=== PATIENT | female | born 1985 | race Caucasian/White ===

== ENCOUNTER 2019-06-13 14:03 | Emergency (ER) | payer MEDICAID, SELFPAY ==
[2019-06-13 14:04] VITALS: BP 145/90; PULSE 99; RESP 16; TEMP 37.1; O2SAT 97; BMI 31.8
[2019-06-13 15:01] VITALS: RESP 18
--- NOTE | 2019-06-13 15:08 | RAD_ITS ---
STUDY: X-RAY CHEST REASON FOR EXAM: Female, 33 years old. Cough with chest heaviness. TECHNIQUE: Frontal and lateral views of the chest. COMPARISON: None. FINDINGS: The lungs are clear and expanded. There is no demonstrated pleural abnormality. Normal size heart. Normal mediastinum and bautista. Normal visualized pulmonary arteries. Normal visualized aortic arch and descending thoracic aorta. Normal visualized thoracic spine. Normal visualized ribs, clavicles, and shoulders. There is no demonstrated abnormality of the visualized soft tissue structures of the upper abdomen. RAD/Chest PA and Lateral IMPRESSION: Normal x-ray examination of the chest. Electronically Signed: Tito Goodman MD at 15:31 EST , Service support ,
--- NOTE | 2019-06-13 15:09 | ED.VIS.URI ---
History of Present Illness Chief Complaint: Cold Sx Informant: Patient Onset: Days - 4 Context: Gradual Onset Timing: Continuous Quality: throbbing headache. chest pressure/tightness. Location: bifrontal. substernal. Current Severity: Moderate Maximum Severity: Moderate Worsened by: - - nothing Relieved by: - - nothing Associated Symptoms: Nasal Congestion, Headache, Nonproductive cough. Negative for: Nausea, Shortness of Breath, Hemoptysis Narrative: Patient states she has had a migraine for 4 or 5 days, followed by cold symptoms and the migraine has persisted and worsened. It was gradual onset headache, no thunderclap, no loss of consciousness or vomiting associated with it. She denies any fevers or dyspnea but states her chest hurts especially when she coughs. She is having some tightness. No history of asthma. States she has had headaches like this before but not very frequently. - Past Medical History (1) Endometriosis Status: Chronic Past Medical History - Allergies and Home Meds Allergies/Adverse Reactions: Allergies Penicillins Allergy (Verified 06/13/19 14:03) Angioedema venlafaxine [From Effexor] Allergy (Verified 06/13/19 14:03) Hives Primary Care Physician: NOT,DEFINED [NON-STAFF] - Lives: With Family Smoking Status: Never smoker Drugs: None Review of Systems General: Reports: Malaise. Denies: Chills, Fever, Sweats Eyes: Reports: Blurred Vision - bilaterally - when headache worsens. Denies: Diplopia ENT: Reports: Bilateral ear pain, Rhinorrhea, Sore throat Cardiovascular: Reports: Chest pain. Denies: Palpitations Respiratory: Reports: Cough. Denies: Dyspnea, Sputum, Dyspnea on exertion Gastrointestinal: Reports: Vomiting - rare posttussive only. Denies: Abdominal pain, Nausea, Diarrhea, Melena, Hematochezia Genitourinary: Denies: Dysuria, Hematuria, Frequency Musculoskeletal: Denies: Neck pain, Back pain, Swelling, Extremity Pain Skin: Denies: Rash, Wounds Neurological: Reports: Headache - migraine. Denies: Weakness, Numbness Physical Exam Vital Signs/Narrative: Vital Signs Temp Pulse Resp BP Pulse Ox 06/13/19 15:01 18 06/13/19 14:04 98.7 F 99 16 145/90 H 97 Inital Vital Signs reviewed: Yes General: Well nourished, Well developed, Obese Head: Normocephalic, Atraumatic Eyes: Perrl, EOMI Ears: Normal external canal, - - cerumen impaction bilaterally; TMs not visible at all. Negative for: Pain with Movement of Right Tragus, Pain with Movement of Left Tragus, Right Mastoid Tenderness, Left Mastoid Tenderness Nose: Normal Inspection, No Rhinorrhea Mouth/Throat: Normal Inspection, No Posterior Erythema, Airway Patent Tonsils: Negative for: Right Tonsilar Erythema, Left Tonsilar Erythema, Right Tonsilar Exudates, Left Tonsilar Exudates, Right Tonsilar Swelling, Left Tonsilar Swelling Neck: Supple, Nontender, No Lymphadenopathy, No Meningismus Cardiovascular: Regular rate, Regular rhythm, No murmurs Respiratory: No distress, CTA bilaterally, Chest nontender Abdomen: Soft, Nontender, Nondistended, Normal bowel sounds Back: Nontender, Normal Inspection Extremities: Nontender, No edema. Negative for: Calf Tenderness Skin: Normal color, No rash, No Trauma Neurological: Alert, Oriented x3, Cranial nerves II-XII grossly intact, Normal Strength, Normal Sensation Psychological: Normal affect, Normal Mood Diagnostic/Tx/Re-eval Clinical Impression(s) from Imaging Studies Chest X-Ray 06/13/19 15:08 IMPRESSION: Normal x-ray examination of the chest. Electronically Signed: Tito Goodman MD at 15:31 EST , Service support , - Medical Decision Making Chest x-ray unremarkable. Albuterol aerosol did not help her chest discomfort but a GI cocktail did. He had nursing staff irrigate the cerumen out of her ears. This helped significantly on the right, her TM on reexamination is normal-appearing. On the left there is still quite a bit of hard cerumen, I can see a very slight piece of the superior aspect of the tympanic membrane that looks erythematous. She states this ear hurts worse. Will place her on antibiotics for the ear, she was advised that it will likely not help her cold. She was given appropriate discharge instructions for all of the above. ED Disposition - Plan for ED Patient: Disposition: Home or Assisted Living Diagnosis: Left otitis media, Acute viral bronchitis, Impacted cerumen of both ears Instructions: BRONCHITIS, No Antibiotic (Adult), OTITIS MEDIA, Abx Tx (Adult), CERUMEN IMPACTION, Home Care Prescriptions: Azithromycin [Zithromax Z-Davonte] 250 mg PO UD #1 box Prescription Printed Referrals: Doctor,Your [STAFF PHYSICIAN] - 1 Week if not improving
[2019-06-13] MEDS: Ketorolac 60 MG/2 ML Vial IM (15:31)
[2019-06-13] MEDS: Metoclopramide 10 MG/2 ML Vial IM (15:31)
[2019-06-13] MEDS: Albuterol 2.5 MG/3 ML VIAL.NEB. INHALATION (15:36)
[2019-06-13 15:37] VITALS: PULSE 84; RESP 20
[2019-06-13] MEDS: Mag Hydrox/Al Hydrox/Simeth 30 ML UDC PO (16:39)
== END 2019-06-13 17:02 | disposition home or self-care (01) ==
PROVIDERS: Emergency Provider Emergency Medicine
DX: H66.92 Otitis media, unspecified, left ear (principal); J20.8 Acute bronchitis due to other specified organisms; H61.23 Impacted cerumen, bilateral; G43.909 Migraine, unspecified, not intractable, without status migrainosus; E66.9 Obesity, unspecified; N80.9 Endometriosis, unspecified
CPT/HCPCS: 71046; 94640; 96372; 99284

== ENCOUNTER 2020-03-10 01:27 | Outpatient (CLI) | payer MEDICAID, SELFPAY ==
[2020-03-10 01:27] VITALS: BP 154/88; PULSE 78; PULSE 82; RESP 20; TEMP 36.3; O2SAT 100; O2SAT 99; BMI 42.3
--- NOTE | 2020-03-10 01:35 | EKG12_ITS ---
Test Reason : CP Blood Pressure : / mmHG Vent. Rate : 088 BPM Atrial Rate : 088 BPM P-R Int : 154 ms QRS Dur : 088 ms QT Int : 352 ms P-R-T Axes : 044 056 061 degrees QTc Int : 425 ms Normal sinus rhythm with sinus arrhythmia Normal ECG No previous ECGs available Confirmed by ANGELO ROGER, EL ([id number]), make up editor ARGENTINA LLANES ([id number]) on 03/17/2020 12:51:28 PM Referred By: MR Confirmed By:EL STEPHENS MD
--- NOTE | 2020-03-10 01:36 | RAD_ITS ---
STUDY: X-RAY CHEST REASON FOR EXAM: Female, 34 years old. C/O HEAVINESS IN CHEST X 1 DAY -- WOULD NOT TAKE IN A DEEPER INSPIRATION DUE TO PAIN TECHNIQUE: PA and lateral views of the chest. COMPARISON: June 13, 2019 chest x-ray FINDINGS: Lungs are underexpanded. There is increased density in the lower lung zones allowing for summation of shadows. There is no demonstrated pleural abnormality. Normal size heart. Normal mediastinum and bautista. Normal visualized pulmonary arteries. Normal visualized aortic arch and descending thoracic aorta. Normal visualized thoracic spine. Normal visualized ribs, clavicles, and shoulders. There is no demonstrated abnormality of the visualized soft tissue structures of the upper abdomen. RAD/Chest PA and Lateral IMPRESSION: Allowing for summation of shadows, consider Lower lobe atelectasis cannot entirely exclude developing infiltrates. Electronically Signed: Renee Ruvalcaba MD at 2:27 EDT Tel , Service support ,
--- NOTE | 2020-03-10 01:38 | ED.RN ---
NO OLD EKGS IN MUSE
--- NOTE | 2020-03-10 01:39 | ED.VIS.CHEST ---
History of Present Illness Chief Complaint: Chest Pain Informant: Patient Narrative: Patient presenting for evaluation secondary to chest pain. Patient reports that since this morning she has been dealing with chest pain. Patient reports that it is exertional, associated with pain across her chest that she describes as a tightness. Is worse with taking a deep breath. Is been associated with some nausea and lightheadedness. Patient denies recent infectious signs or symptoms such as fever cough diarrhea abdominal pain or skin rashes. She denies any personal history of hypertension hyperlipidemia diabetes or smoking but does have family history of premature heart disease. Patient was on control about 2 months ago, has since been off. Patient denies any other DVT or PE risk factors. Review of systems otherwise negative. Past Medical History - Allergies and Home Meds Allergies/Adverse Reactions: Allergies Penicillins Allergy (Verified 06/13/19 14:03) Angioedema venlafaxine [From Effexor] Allergy (Verified 06/13/19 14:03) Hives Primary Care Physician: Care Physician,No Primary [Primary Care Provider] - Past Medical History: None Surgical History: - - Tubal ligation Lives: With Family Smoking Status: Never smoker Alcohol: None Drugs: None Review of Systems All systems negative except as indicated General: Reports: - - Lightheadedness Eyes: Denies: Visual changes - bilaterally, Diplopia ENT: Denies: Rhinorrhea, Sore throat Cardiovascular: Reports: Chest pain Respiratory: Denies: Dyspnea, Cough, Dyspnea on exertion Gastrointestinal: Reports: Nausea Genitourinary: Denies: Dysuria, Hematuria, Frequency Musculoskeletal: Denies: Back pain, Extremity Pain Skin: Denies: Rash, Wounds Neurological: Denies: Headache, Weakness, Numbness Physical Exam Vital Signs/Narrative: Vital Signs Temp Pulse Resp BP Pulse Ox 03/10/20 01:27 97.4 F L 82 20 H 154/88 H 100 Inital Vital Signs reviewed: Yes General: Well nourished, Well developed, Obese, No Acute Distress Head: Normocephalic, Atraumatic Eyes: Perrl, EOMI ENT: Moist mucous membranes, No rhinorrhea Neck: Supple, Nontender Cardiovascular: Regular rate, Regular rhythm, No murmurs Respiratory: No distress, CTA bilaterally, Chest nontender Abdomen: Soft, Nontender, Nondistended, Normal bowel sounds Back: Nontender, Normal Inspection Extremities: Nontender, No edema Skin: Normal color, No rash Neurological: Alert, Oriented x3, Cranial nerves II-XII grossly intact, Normal Strength, Normal Sensation Psychological: Normal affect, Normal Mood Diagnostic/Tx/Re-eval Laboratory Data 03/10/20 03/10/20 03/10/20 02:01 02:01 02:01 WBC 7.7 RBC 4.33 Hgb 11.9 L Hct 37.5 MCV 86.6 MCH 27.5 MCHC 31.7 L RDW Std Deviation 42.9 RDW Coeff of Swapna 13.6 Plt Count 356 MPV 10.4 Immature Gran % (Auto) 0.300 Neut % (Auto) 50.4 Lymph % (Auto) 35.7 [place] % (Auto) 9.4 Eos % (Auto) 3.3 Baso % (Auto) 0.9 Absolute Neuts (auto) 3.9 Absolute Lymphs (auto) 2.74 Nucleated RBC % 0 D-Dimer Quant (PE/DVT) 0.29 Sodium 144 Potassium 3.6 Chloride 111 H Carbon Dioxide 26.0 Anion Gap 7 BUN 11 Creatinine 0.94 Estim Creat Clear Calc 71.07 Est GFR (MDRD) Af Amer 88 Est GFR (MDRD) Non-Af 73 BUN/Creatinine Ratio 11.7 Glucose 114 H Calcium 8.6 Magnesium 2.0 Troponin I < 0.015 TSH 1.93 - EKG Initial EKG Interpretation: - - Sinus rhythm of 88 with sinus arrhythmia. Normal IL and QTc intervals. Isoelectric ST segments normal T waves. No evidence of acute ischemia or arrhythmia. - Medical Decision Making Patient presented for evaluation secondary to chest pain. EKG was found to be unremarkable. CBC chemistry and troponin also found to be unremarkable. TSH within normal limits, d-dimer was ordered due to the pleuritic nature of the patient's pain and was also found to be negative. Patient's heart score is a maximum of a 2, she has a negative work-up reassuring vital signs and I do not feel that she requires admission or further work-up. Patient was given reassurance, she was instructed to follow-up with primary care. Patient was discharged in stable condition. ED Disposition - Plan for ED Patient: Disposition: Home or Assisted Living Diagnosis: Chest pain Instructions: ED Chest Pain NonCardiac Referrals: Care Physician,No Primary [Primary Care Provider] -
[2020-03-10] MEDS: Aspirin 81 MG TAB.CHEW 324 MG PO (01:42)
[2020-03-10 03:16] VITALS: BP 129/76; PULSE 67; RESP 18; O2SAT 99
[2020-03-10 04:07] LABS: Absolute Lymphocyte Count 2.74 X10^3/uL (0.83-4.51); Absolute Neutrophil Count 3.9 X10^3/uL (2.0-7.7); Basophil# 0.07 X10^3/uL; Basophil% 0.9 % (0-1); Eosinophil# 0.25 X10^3/uL; Eosinophils% 3.3 % (0-5); Hematocrit 37.5 % (37-47); Hemoglobin 11.9 g/dL (12.0-15.0); Lymphocyte # 2.74 X10^3/ul (4.0); Lymphocyte % 35.7 % (19-41); Mean Corp Hgb Conc 31.7 g/dL (32-36); Mean Corpuscular Hgb 27.5 pg (27.0-32.0); Mean Corpuscular Volume 86.6 fL (81-99); Mean Platelet Vol. 10.4 fl (6.2-12.0); Monocyte# 0.72 X10^3/uL; Monocyte% 9.4 % (0-10); NRBC Flagged by Analyzer 0 % (0-5); Neutrophil # 3.87 X10^3/uL (2.7-7.7); Neutrophil % 50.4 % (47-70); Platelet Count 356 K/mm3 (150-450); RBC Distribution Width CV 13.6 % (11.6-14.6); RBC Distribution Width SD 42.9 fl (35.1-43.9); Red Blood Count 4.33 M/mm3 (4.2-5.4)
[2020-03-10 04:10] LABS: Anion Gap 7 (5-15); BUN 11 mg/dL (7-18); BUN/Creat Ratio 11.7 RATIO (10-20); Calcium,Total 8.6 mg/dL (8.5-10.1); Chloride 111 mmol/L (98-107); Creatinine, Serum 0.94 mg/dL (0.55-1.02); EST Glomerular Filtration Rate 73 mL/min (>60); Est Glom Filt Rate - Afr Amer 88 mL/min (>60); Estimated Creatinine Clearance 71.07 ml/min; Glucose 114 mg/dL (74-106); Potassium 3.6 mmol/L (3.5-5.1); Sodium Level 144 mmol/L (136-145); Thyroid Stim Hormone (TSH) 1.93 uIU/mL (0.358-3.74)
[2020-03-10 04:48] LABS: D-Dimer Quantitative (DVT/PE) 0.29 FEU/ug/m (0.27-0.49); White Blood Count 7.7 K/mm3 (4.4-11.0)
== END 2020-03-11 14:48 ==
LOC: ED 04:22 → LABSPEC 03-11 14:51 → ED 03-11 14:53
PROVIDERS: Emergency Provider Emergency Medicine; Visit Provider Family Medicine
DX: R07.9 Chest pain, unspecified (principal); Z82.49 Family history of ischemic heart disease and other diseases of the circulatory system; Z88.0 Allergy status to penicillin; E66.9 Obesity, unspecified; R42 Dizziness and giddiness; R11.0 Nausea
CPT/HCPCS: 71046; 80048; 83735; 84443; 84484; 85025; 85379; 87635; 93005; 99284; A4216; U0003

== ENCOUNTER → 2020-03-26 18:01 | Outpatient (CLI) | payer MEDICAID, SELFPAY ==
[2020-03-10 01:27] VITALS: BMI 42.3
== END ==
PROVIDERS: Referring Provider Physician Assistant; Visit Provider Physician Assistant
DX: Z20.828 Contact with and (suspected) exposure to other viral communicable diseases (principal)
CPT/HCPCS: 87635; C9803; U0003

== ENCOUNTER 2020-06-24 18:50 | Emergency (ER) | payer MEDICAID, SELFPAY ==
[2020-06-24 18:50] VITALS: BP 123/70; PULSE 64; PULSE 68; RESP 16; TEMP 35.6; O2SAT 98; O2SAT 99; BMI 41.7
--- NOTE | 2020-06-24 19:10 | ED.VIS.GEN ---
History of Present Illness Chief Complaint: Eye Problem Informant: Patient Onset: Today Context: - - Woke up with symptoms several hours prior to arrival Timing: Continuous Quality: Sore, red, swollen Location: Left upper eyelid Current Severity: Moderate Maximum Severity: Moderate Worsened by: Palpation, moving eyelid Relieved by: Remaining still Associated Symptoms: None. Denies vision changes, discharge, fevers or chills. 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 There is no itching. She denies any foreign body sensation in her eye or vision changes, except for trouble seeing past the swollen eyelid at times. She also has a little redness and soreness in her upper lip but it is not as bad as her left upper eyelid. She denies any systemic symptoms or fevers. No injury. She states when she went to bed this morning none of this was like this and she does not recall having the sensation of a stye. She does not wear contacts. - Past Medical History (1) Fibromyalgia Status: Chronic (2) Endometriosis Status: Chronic Past Medical History - Allergies and Home Meds Allergies/Adverse Reactions: Allergies Penicillins Allergy (Verified 06/13/19 14:03) Angioedema venlafaxine [From Effexor] Allergy (Verified 06/13/19 14:03) Hives Primary Care Physician: Care Physician,No Primary [Primary Care Provider] - Surgical History: - - Tubal ligation Smoking Status: Never smoker Review of Systems General: Denies: Chills, Fever, Sweats Eyes: Reports: - - Left upper eyelid pain, redness, swelling without discharge. Denies: Visual changes - bilaterally, Diplopia ENT: Reports: - - Upper lip soreness and redness. Denies: Rhinorrhea, Sore throat Respiratory: Denies: Dyspnea, Cough, Dyspnea on exertion Gastrointestinal: Denies: Abdominal pain, Nausea, Vomiting, Diarrhea Skin: Reports: Rash. Denies: Abscess, Wounds Physical Exam Vital Signs/Narrative: Vital Signs Temp Pulse Resp BP Pulse Ox 06/24/20 18:50 96.0 F L 68 16 123/70 H 98 Inital Vital Signs reviewed: Yes General: Well nourished, Well developed, No Acute Distress Head: Normocephalic, Atraumatic Eyes: Perrl, EOMI - Without pain, entrapment, diplopia, - - Erythematous, mildly swollen, tender left upper eyelid. No sign of an internal or external hordeolum. Globe appears normal. No conjunctival injection or chemosis. ENT: Moist mucous membranes, No rhinorrhea, - - No trismus. Normal intraoral and tongue exam. Minor erythema and tenderness just to the right of midline and above the vermilion of the upper lip without discrete papule/vesicle/pustule. Neck: Supple, Nontender, No lymphadenopathy Skin: - - Tender left upper eyelid erythema and mild diffuse swelling without fluctuance/abscess. Neurological: Alert, Oriented x3, Cranial nerves II-XII grossly intact, Normal Strength, Normal Sensation Psychological: Normal affect, Normal Mood Diagnostic/Tx/Re-eval - Medical Decision Making Patient has no findings or symptoms of orbital cellulitis. This clearly is superficial, and I do not think she needs a CT at this time. I do not see an obvious etiology of this such as a hordeolum. We will treat her for preseptal cellulitis with a second generation cephalosporin, and advised close outpatient follow-up if it does not resolve. She is aware that after starting the antibiotic it is possible that she has some mild worsening over the first day or 2 until the antibiotic gets the levels, and we discussed reasons to return to the ER including signs or symptoms of orbital cellulitis. She has an allergic reaction to penicillin, she states that she gets hives and her throat feels tight but she has never needed to be admitted to the ICU or intubated as a result of any of this. She does not remember if she has ever had a cephalosporin. We discussed the risks and benefits, and the low likelihood that a second generation cephalosporin will cross-react and give her allergic reaction, she is okay getting this and we discussed signs and symptoms to stop it and return to the ER. She was given an initial dose here in ER and monitored for short period of time and did not develop any adverse reactions. ED Disposition - Plan for ED Patient: Disposition: Home or Assisted Living Diagnosis: Preseptal cellulitis of left upper eyelid Instructions: ED Periorbital Cellulitis Prescriptions: Cefuroxime Axetil [Cefuroxime] 500 mg PO BID #20 tab Prescription Printed Referrals: Chikis Summers MD [STAFF PHYSICIAN] - 3-5 Days if not improving
[2020-06-24] MEDS: Ibuprofen 600 MG Tablet PO (19:28)
[2020-06-24] MEDS: CEFUROXIME AXETIL 250 MG TABLET 500 MG PO (19:28)
[2020-06-24 19:35] VITALS: O2SAT 99
== END 2020-06-24 19:35 | disposition home or self-care (01) ==
PROVIDERS: Emergency Provider Emergency Medicine
DX: L03.213 Periorbital cellulitis (principal); M79.7 Fibromyalgia; Z88.0 Allergy status to penicillin; N80.9 Endometriosis, unspecified
CPT/HCPCS: 99282

== ENCOUNTER 2020-10-08 20:53 | Emergency (ER) | payer OTHER, MEDICAID, SELFPAY ==
[2020-10-07 08:53] VITALS: BMI 40.1
[2020-10-08 20:54] VITALS: BP 172/106; PULSE 115; RESP 18; TEMP 36; O2SAT 97; BMI 40.7
--- NOTE | 2020-10-08 21:17 | CT_ITS ---
STUDY: CT LEFT FEMUR WITHOUT CONTRAST REASON FOR EXAM: Female, 35 years old. left knee pain RADIATION DOSAGE (If Supplied By Facility): CTDIvol = ( 16.89 ) mGy, DLP = ( 1056.14 ) mGycm TECHNIQUE: Transaxial CT imaging of the femur was performed. Sagittal and coronal images were reconstructed. Individualized dose optimization techniques were used for this CT. COMPARISON: Left knee and pelvis/left hip x-ray dated OCTOBER 07, 2020 FINDINGS: Normal visualized femur. Normal visualized aspects of the left hip. There is mild narrowing of medial compartment of the knee. No fractures are present. Mild soft tissue swelling is seen on the medial side of the distal femur. No visualized knee joint effusion. Mild medial joint capsule sprain and small amount of overlying edema. CT/Extremity Lower without Contra IMPRESSION: Mild medial joint capsule sprain and small amount of overlying edema. Electronically Signed: Mc Sheehan MD at 22:28 EDT , Service support ,
--- NOTE | 2020-10-08 21:18 | ED.DCSUM_ITS ---
History of Present Illness Chief Complaint: Lower Extremity Injury Informant: Patient Narrative: 35-year-old female presenting with left knee pain. She states she fell at work yesterday and injured her left knee. [facility] to [facility] and had x-rays of the knee and hip performed. These were negative. She has been doing Tylenol and ibuprofen. She states she was told she had to work yesterday. Now she is experiencing worsening pain. She states that it feels like it is behind her k nee and anterior knee. She has bruising over the knee. She has antalgic gait. Past Medical History - Allergies and Home Meds Allergies/Adverse Reactions: Allergies Penicillins Allergy (Verified 10/08/20 20:56) Angioedema venlafaxine [From Effexor] Allergy (Verified 10/08/20 20:56) Hives Primary Care Physician: Care Physician,No Primary [Primary Care Provider] - Past Medical History: - - Endometriosis, fibromyalgia Surgical History: noncontributory, - Lives: Alone Smoking Status: Never smoker Alcohol: None Drugs: None Review of Systems General: Denies: Chills, Fever, Sweats Eyes: Denies: Visual changes - bilaterally, Diplopia ENT: Denies: Rhinorrhea, Sore throat Cardiovascular: Denies: Chest pain, Palpitations Respiratory: Denies: Dyspnea, Cough, Dyspnea on exertion Gastrointestinal: Denies: Abdominal pain, Nausea, Vomiting, Diarrhea, Melena, Hematochezia Genitourinary: Denies: Dysuria, Hematuria, Frequency Musculoskeletal: Reports: Extremity Pain - Left knee pain Skin: Reports: - - Bruising over the left patella Neurological: Denies: Headache, Weakness Psych: Denies: Depression, Anxiety Endocrine: Denies: Polyuria, Polydipsia Physical Exam Vital Signs/Narrative: Vital Signs Temp Pulse Resp BP Pulse Ox 10/08/20 20:54 96.8 F L 115 H 18 172/106 H 97 Inital Vital Signs reviewed: Yes General: Obese, No Acute Distress Head: Normocephalic, Atraumatic Eyes: Perrl, EOMI ENT: Moist mucous membranes, No rhinorrhea Cardiovascular: Regular rate, Regular rhythm Respiratory: No distress, CTA bilaterally Extremities: - - Tenderness to palpation to even light touch of the skin over the left knee. There is ecchymosis over the patella. It does not appear to be significantly swollen more than the contralateral knee. Extensor mechanism is intact. No abrasions or lacerations. TTP popliteal fossa Neurological: Alert, Oriented x3, Cranial nerves II-XII grossly intact Psychological: Tearful, Agitated Diagnostic/Tx/Re-eval Clinical Impression(s) from Imaging Studies Lower Extremity CT 10/08/20 21:17 IMPRESSION: Mild medial joint capsule sprain and small amount of overlying edema. Electronically Signed: Mc Sheehan MD at 22:28 EDT , Service support , - Medical Decision Making Presenting with for oxycodone in the ED. I obtained CT imaging of the left knee which showed a medial joint capsule sprain as well as some overlying edema. Lorraine shah counseled on findings. She is given Percocet for home after checking her [facility] report. [facility]. Patient given crutches for ambulation. Patient over discharge at this time. Impression: 1. Left knee sprain ED Disposition - Plan for ED Patient: Disposition: Home or Assisted Living Instructions: ED Knee Sprain Referrals: Care Physician,No Primary [Primary Care Provider] -
[2020-10-08] MEDS: oxyCODONE 5 MG Tablet PO (21:51)
--- NOTE | 2020-10-08 23:33 | ED.RN ---
pt already has crutches in her car.
[2020-10-08 23:46] VITALS: BP 165/80; PULSE 78; RESP 20; O2SAT 97
== END 2020-10-08 23:47 | disposition home or self-care (01) ==
PROVIDERS: Emergency Provider Student in an Organized Health Care Education/Training Program
DX: S83.92XD Sprain of unspecified site of left knee, subsequent encounter (principal); W19.XXXD Unspecified fall, subsequent encounter; E66.9 Obesity, unspecified; M79.7 Fibromyalgia; Z88.0 Allergy status to penicillin
CPT/HCPCS: 73700; 99283

== ENCOUNTER → 2020-10-12 07:57 | Outpatient (CLI) | payer OTHER, SELFPAY ==
[2020-10-07 08:53] VITALS: BMI 40.1
[2020-10-08 20:54] VITALS: BMI 40.7
--- NOTE | 2020-10-12 07:59 | MRI_ITS ---
STUDY: MRI LEFT KNEE REASON FOR EXAM: Female, 35 years old. Left knee injury. TECHNIQUE: Standardized fat and water weighted pulse sequences were obtained in all 3 orthogonal planes. COMPARISON: 10/07/2020. FINDINGS: Patellofemoral chondromalacia (axial image 12 series 3). Medial compartment articular cartilage is preserved. Lateral compartment articular cartilage preserved. No acute fracture, dislocation or cortical destruction. Lateral meniscus intact. Medial meniscus intact. Small volume joint effusion. No popliteal cyst. Mild/moderate anterior soft tissue swelling. Normal medial collateral ligamentous complex (MCL). Normal distal semimembranosus, gracilis and semitendinosus tendons. Normal proximal tibiofibular articulation. Normal lateral collateral (fibular) ligament. Normal popliteus tendon. Normal biceps femoris tendon. Normal anterior cruciate ligament (ACL). Normal posterior cruciate ligament (PCL). Normal medial and lateral patellar retinaculum. Normal quadriceps tendon. Normal patellar tendon. Normal Hoffa''s fat pad. MRI/Lower Ext Joint Only (Routine) IMPRESSION: Patellofemoral chondromalacia Small-volume joint effusion and mild/moderate anterior soft tissue swelling No internal derangement Electronically Signed: Julio Cesar Hines DO at 9:32 EDT Tel , Service support ,
== END ==
PROVIDERS: Referring Provider Physician Assistant; Visit Provider Physician Assistant
DX: S86.912A Strain of unspecified muscle(s) and tendon(s) at lower leg level, left leg, initial encounter (principal); S80.02XA Contusion of left knee, initial encounter
CPT/HCPCS: 73721

== ENCOUNTER 2021-05-14 11:14 | Emergency (ER) | payer MEDICAID, SELFPAY ==
[2021-05-14 11:15] VITALS: BP 169/125; PULSE 120; RESP 22; TEMP 36.6; O2SAT 98; BMI 43.4
--- NOTE | 2021-05-14 11:53 | RAD_ITS ---
INDICATION: cough sob EXAMINATION/TECHNIQUE: X-RAY - XR Chest 1 View COMPARISON: Chest radiograph from 03/10/2020 FINDINGS: LINES/DEVICES: None. The cardiomediastinal silhouette is within normal limits. No focal consolidations, effusions, or sizable pneumothorax. Osseous structures are grossly intact. Stable surgical clips in left upper quadrant. RAD/Chest 1 View (Portable) IMPRESSION: No acute findings. Electronically Signed: Lambert Summers MD at 13:16 EST Tel , Service support ,
--- NOTE | 2021-05-14 11:54 | EDS_ITS ---
HPI HPI - URI History of Present Illness Chief Complaint: Shortness of Breath Informant: patient Onset/Context/Timing Onset: Days (3) Context: Gradual Onset Timing: Continuous Quality: congested Location: nasal and chest Current Severity: Moderate Maximum Severity: Moderate Worsened by: - (coughing) Relieved by: - (nothing) Associated Symptoms Associated Symptoms: Positive for Nasal Congestion, Headache, Myalgias, Vomiting (posttussive mostly), Shortness of Breath, Chest Pain (sore when coughing) and Nonproductive cough; Negative for Sinus Pressure, Nausea and Diarrhea Narrative Narrative: Patient presenting with 3 days of Covid symptoms including myalgias, she does not have diarrhea but she has had fevers up to 102. Her 9-year-old daughter has been sick for 1 week with similar symptoms. This patient has never had Covid, she has not tested herself in the past several days yet. She states she had the first Pfizer Covid vaccine injection more than 1 month ago, she did not get the second 1 because she was having a fibromyalgia flareup during that time. ROS ROS ED Constitutional Constitutional ED: Reports body ache(s), chills, fatigue, fever(s), headache(s) and malaise Eyes Eyes: Denies change in vision or diplopia ENT ENT ED: Reports headache(s), nasal congestion and rhinorrhea; Denies sore throat Cardiovascular Cardiovascular: Reports as per HPI and chest pain; Denies palpitations Respiratory/Chest Respiratory/Chest: Reports cough, dyspnea and dyspnea on exertion Gastrointestinal Gastrointestinal: Reports vomiting; Denies abdominal pain, diarrhea or nausea Genitourinary Genitourinary ED: Denies dysuria or hematuria Musculoskeletal Musculoskeletal: Denies back pain or neck pain Integumentary Denies abscess or rash Neurologic Neurologic: Reports headache(s); Denies paresthesias or weakness Psychiatric Psychiatric: Denies anxiety or suicidal thoughts [facility] Medical History (Updated 05/14/21 @ 14:[address] Talon Orozco MD) Endometriosis Fibromyalgia Scoliosis Home Medications norethindrone acetate 5 mg tablet 5 mg PO DAILY 10/07/20 [History Last Taken Unknown] Allergy/AdvReac Type Severity Reaction Status Date / Time Penicillins Allergy Angioedema Verified 05/14/21 11:17 venlafaxine [From Effexor] Allergy Hives Verified 05/14/21 11:17 Social History Smoking Status: Never smoker EXAM Physical Exam Const Vital Signs: 05/14/21 11:15 05/14/21 13:24 05/14/21 13:26 Temperature 98 F Temperature Source Temporal Pulse Rate 120 H Respiratory Rate 22 H 20 H Respiratory Effort Short of Breath Respiratory Depth Normal Respiratory Pattern Normal Blood Pressure 169/125 H Blood Pressure Mean 139 Pulse Ox 98 Oxygen Delivery Method Room Air Room Air Positive well nourished, well developed and obese Constitutional Narrative: Malaised-appearing, no distress General Appearance ED: well developed and NAD Nutritional Appearance: obese HEENT Reports moist mucous membranes normocephalic and atraumatic Eyes PERRL and EOMs intact bilaterally Neck full ROM, no lymphadenopathy, supple and no meningeal signs Resp normal respiratory effort and clear to auscultation bilaterally Cardio regular rate, regular rhythm and no murmurs Rate: Negative for tachycardic GI non-tender and non-distended Auscultation: normoactive bowel sounds Palpation: soft Back/Spine no CVA tenderness General Back: other FROM Extremity normal to inspection and no calf tenderness General Extremety ED: Negative for edema, pulses abnormal or tenderness General Extremity: Negative for edema or pulses abnormal Neuro oriented x3, CN's II-XII intact bilaterally and no sensory deficits noted Sensorium / Orientation: awake and alert Motor Exam: strength 5/5 throughout Psych Psych Narrative: Anxious and crying throughout evaluation. Conversive in full sentences. Skin no rashes or lesions noted and no wounds MDM MDM MDM Narrative Medical decision making narrative: Patient has a normal chest x-ray and positive Covid test. She was reassured that her oxygenation is excellent. She does not need to be tested for pulmonary embolus at this time given her symptoms in my judgment. We discussed reasons to return, and to check her pulse ox at home continuously, her daughter which she brought with her tested negative but she has had symptoms for 1 week and I would assume that everybody who was symptomatic in the household has Covid. She was given a note at her request, as well as a dose of Toradol to help with her headache and achy pains which helped. Her obesity makes her a candidate for monoclonal antibody infusion to which she was referred and I discussed this with her briefly. Lab Data Attestation: I reviewed the patient's lab results. Radiography Diagnostic Testing: Clinical Impression(s) from Imaging Studies Chest X-Ray 05/14/21 11:53 IMPRESSION: No acute findings. Electronically Signed: Lambert Summers MD at 13:16 EST Tel , Service support , Discharge Plan Triage Chief Complaint: Shortness of Breath ED Provider: Talon Orozco Dx/Rx/DC Orders Clinical Impression: COVID-19 Instructions: Coronavirus Disease 2019 (COVID-19): Caring for Yourself or Others Prescriptions: No Action norethindrone acetate 5 mg tablet 5 mg PO DAILY RF: 0 Stand Alone Forms: ED Work / School Excuse Other Ambulatory Orders: COVID Outpatient Monoclonal Antibody Referral (Routine) Timeframe: 1 Day Facility: [facility] - Location: [facility] Ordered By: Dr. Talon Oorzco Primary Care Provider: Care Physician,No Primary Referrals: Care Physician,No Primary [Primary Care Provider] - Doctor,Your [STAFF PHYSICIAN] - As Needed Activity Restrictions/Additional Instructions: Try to get a home portable pulse oximeter and closely watch your oxygen levels periodically. If you stay below 90% for more than a minute or so, and/or you are feeling like your breathing is getting worse, return to the emergency department for further evaluation. Disposition Disposition: Home, Self Care
--- NOTE | 2021-05-14 12:08 | CM.ED ---
SW Note Referral Source: Case Find Referral Reason: No PCP SW met with patient. She reports she has appointment with [facility] on 05/22/21 for ongoing medical care. Declined a 2020 Healthcare Provider list. Plan: Patient has resources for PCP Winifred ISABEL
[2021-05-14] MEDS: Ketorolac 60 MG/2 ML Vial IM (13:20)
[2021-05-14 13:24] VITALS: RESP 20
[2021-05-14 13:26] VITALS: O2SAT 100
[2021-05-14 15:09] VITALS: RESP 18
== END 2021-05-14 15:09 | disposition home or self-care (01) ==
PROVIDERS: Emergency Provider Emergency Medicine
DX: U07.1 COVID-19 (principal); E66.9 Obesity, unspecified; M41.9 Scoliosis, unspecified; M79.7 Fibromyalgia; Z79.3 Long term (current) use of hormonal contraceptives
CPT/HCPCS: 71045; 87426; 96372; 99282

== ENCOUNTER 2021-07-14 13:30 | Outpatient (RCR) | payer MEDICAID, SELFPAY | END 2021-07-19 23:59 | LOC: NS 13:30 | PROVIDERS: Visit Provider Internal Medicine | DX: Z71.3 Dietary counseling and surveillance (principal); E66.01 Morbid (severe) obesity due to excess calories; Z68.41 Body mass index [BMI] 40.0-44.9, adult | CPT/HCPCS: 97802; 97803 ==

== ENCOUNTER 2021-08-10 13:15 | Outpatient (RCR) | payer MEDICAID, SELFPAY | END 2021-08-16 23:59 | LOC: NS 13:15 | PROVIDERS: Referring Provider Internal Medicine; Visit Provider Internal Medicine | DX: Z71.3 Dietary counseling and surveillance (principal); E66.01 Morbid (severe) obesity due to excess calories; Z68.41 Body mass index [BMI] 40.0-44.9, adult | CPT/HCPCS: 97803 ==

== ENCOUNTER 2021-12-13 08:51 | Emergency (ER) | payer MEDICAID, SELFPAY ==
[2021-12-13 08:52] VITALS: BP 204/130; PULSE 105; RESP 22; TEMP 36.4; O2SAT 100; BMI 45.2
--- NOTE | 2021-12-13 10:20 | EX.ED.DYSGE1 ---
HPI History of Present Illness Chief Complaint: Nausea/Vomiting Informant: patient Onset/Context/Timing Onset: Today Context: Sudden Onset Timing: Continuous Quality: Aching Location: Generalized Worsened by: Nothing Relieved by: Nothing Narrative Narrative: Patient presents with generalized aching that began this morning. Patient states she has aching in all of her muscles. Patient describes it as cramping and aching. Patient states that she was swimming for several hours yesterday. Patient admits to some subjective chills. Patient admits to some nausea and vomiting yesterday. Patient denies any nausea or vomiting today. Patient denies any diarrhea, melena, or hematochezia. Patient denies any urinary complaints. Patient admits to some aching in her chest. Patient also admits to some shortness of breath. [facility] Medical History Endometriosis Fibromyalgia Scoliosis Home Medications norethindrone acetate 5 mg tablet 5 mg PO DAILY 10/07/20 [History Last Taken Unknown] sulfamethoxazole 800 mg-trimethoprim 160 mg tablet 1 tab PO BID #6 TABLETS 12/13/21 [Rx Last Taken Unknown] Allergy/AdvReac Type Severity Reaction Status Date / Time Penicillins Allergy Angioedema Verified 12/13/21 08:51 venlafaxine [From Effexor] Allergy Hives Verified 12/13/21 08:51 Social History Smoking Status: Never smoker ROS ROS ED Constitutional Constitutional ED: Denies chills or fever(s) Eyes Eyes: Reports change in vision; Denies blurry vision ENT ENT ED: Denies rhinorrhea or sore throat Cardiovascular Cardiovascular: Reports chest pain; Denies palpitations Respiratory/Chest Respiratory/Chest: Reports dyspnea; Denies cough Gastrointestinal Gastrointestinal: Reports nausea and vomiting Genitourinary Genitourinary ED: Denies dysuria or hematuria Musculoskeletal Musculoskeletal: Reports myalgias; Denies neck pain Integumentary Denies abscess or rash Neurologic Neurologic: Denies headache(s) or weakness Allergic/Immunologic Allergic/Immunologic ED: Denies mouth swelling or urticaria EXAM Physical Exam Const Vital Signs: 12/13/21 08:52 12/13/21 10:41 Temperature 97.5 F L Temperature Source Temporal Pulse Rate 105 H Respiratory Rate 22 H Blood Pressure 204/130 H 147/98 H Blood Pressure Mean 154 114 Pulse Ox 100 Oxygen Delivery Method Room Air Positive well nourished, well developed and obese General Appearance ED: well developed and NAD Nutritional Appearance: obese HEENT Reports moist mucous membranes Neck supple and no JVD Resp normal respiratory effort and clear to auscultation bilaterally Cardio regular rate, regular rhythm and no murmurs GI normal to inspection, nondistended, normoactive bowel sounds and non-tender Palpation: soft Extremity normal to inspection General Extremety ED: Negative for edema or tenderness General Extremity: Negative for edema Neuro oriented x3, CN's II-XII intact bilaterally and no sensory deficits noted Sensorium / Orientation: alert Motor Exam: strength 5/5 throughout Psych mental status grossly normal Skin no rashes or lesions noted MDM MDM MDM Narrative Medical decision making narrative: Patient was given IV fluids here. CBC was within normal limits. Comprehensive metabolic profile was within normal limits. Serum hCG was negative. Urinalysis shows leukocyte esterase of 100 with 25-50 white blood cells. There were no bacteria noted. Nitrates were negative. Urine culture was ordered. Patient was given a dose of Bactrim here. Patient was given a prescription for Bactrim. Patient was instructed to follow-up with her primary care physician in 3 to 5 days for further evaluation. Patient understood and was agreeable with the plan. All questions were answered. Lab Data Labs: Laboratory Results - last 24 hr 12/13/21 12/13/21 12/13/21 10:05 10:05 10:05 WBC 10.2 RBC 4.74 Hgb 13.5 Hct 42.6 MCV 89.9 MCH 28.5 MCHC 31.7 L RDW Std Deviation 44.7 H RDW Coeff of Swapna 13.7 Plt Count 327 MPV 10.7 Immature Gran % (Auto) 0.500 Neut % (Auto) 67.6 Lymph % (Auto) 21.8 [place] % (Auto) 7.9 Eos % (Auto) 1.7 Baso % (Auto) 0.5 Absolute Neuts (auto) 6.9 Absolute Lymphs (auto) 2.23 Nucleated RBC % 0 Sodium 139 Potassium 4.5 Chloride 109 H Carbon Dioxide 23.0 Anion Gap 7 BUN 11 Creatinine 0.81 Estim Creat Clear Calc 80.95 Est GFR (MDRD) Af Amer 104 Est GFR (MDRD) Non-Af 86 BUN/Creatinine Ratio 13.5 Glucose 130 H Calcium 8.5 Total Bilirubin 0.80 AST 37 ALT 34 Alkaline Phosphatase 47 Total Creatine Kinase 128 Total Protein 7.6 Albumin 3.4 Globulin 4.2 Albumin/Globulin Ratio 0.8 L Serum , Qual NEGATIVE Urine Color Urine Clarity Urine pH Ur Specific [place] Urine Protein Urine Glucose (UA) Urine Ketones Urine Occult Blood Urine Nitrite Urine Bilirubin Urine Urobilinogen Ur Leukocyte Esterase Urine RBC Urine WBC Ur Squamous Epith Cells Urine Bacteria Urine Mucus 12/13/21 11:30 WBC RBC Hgb Hct MCV MCH MCHC RDW Std Deviation RDW Coeff of Swapna Plt Count MPV Immature Gran % (Auto) Neut % (Auto) Lymph % (Auto) [place] % (Auto) Eos % (Auto) Baso % (Auto) Absolute Neuts (auto) Absolute Lymphs (auto) Nucleated RBC % Sodium Potassium Chloride Carbon Dioxide Anion Gap BUN Creatinine Estim Creat Clear Calc Est GFR (MDRD) Af Amer Est GFR (MDRD) Non-Af BUN/Creatinine Ratio Glucose Calcium Total Bilirubin AST ALT Alkaline Phosphatase Total Creatine Kinase Total Protein Albumin Globulin Albumin/Globulin Ratio Serum , Qual Urine Color Yellow Urine Clarity Sl. Cloudy Urine pH 6.0 Ur Specific [place] 1.015 Urine Protein Negative Urine Glucose (UA) Normal Urine Ketones 5 H Urine Occult Blood 25 H Urine Nitrite Negative Urine Bilirubin Negative Urine Urobilinogen Normal Ur Leukocyte Esterase 100 H Urine RBC 0-5 SEEN Urine WBC 25-50 SEEN Ur Squamous Epith Cells 0 SEEN Urine Bacteria 0 SEEN Urine Mucus 0 SEEN Discharge Plan Triage Chief Complaint: Nausea/Vomiting ED Provider: Julio Cesar Berry Dx/Rx/DC Orders Clinical Impression: Urinary tract infection, Myalgia Instructions: ED Myalgias, ED CYSTITIS Female Adult Prescriptions: New sulfamethoxazole-trimethoprim [sulfamethoxazole-trimethoprim] 1 TABLET tablet 1 tab PO BID Qty: 6 0RF No Action norethindrone acetate 5 mg tablet 5 mg PO DAILY Primary Care Provider: Doc Lozano Referrals: Doc Lozano MD [Primary Care Provider] - 3-5 Days Disposition Disposition: Home, Self Care
[2021-12-13] MEDS: 0.9% Normal Saline 1,000 ML 1000 ML IV (10:32)
--- NOTE | 2021-12-13 10:32 | EKG12_ITS ---
Test Reason : CHEST TIGHTNESS Blood Pressure : / mmHG Vent. Rate : 092 BPM Atrial Rate : 092 BPM P-R Int : 150 ms QRS Dur : 088 ms QT Int : 342 ms P-R-T Axes : 009 026 041 degrees QTc Int : 422 ms Normal sinus rhythm Normal ECG Confirmed by VENKATESH ROGER, ANAYELI ([id number]), offline editor ARGENTINA LLANES ([id number]) on 12/15/2021 8:46:00 AM Referred By: Confirmed By:ANAYELI RIDDLE MD
[2021-12-13 10:33] LABS: Absolute Lymphocyte Count 2.23 X10^3/uL (0.83-4.51); Absolute Neutrophil Count 6.9 X10^3/uL (2.0-7.7); Basophil# 0.05 X10^3/uL; Basophil% 0.5 % (0-1); Eosinophil# 0.17 X10^3/uL; Eosinophils% 1.7 % (0-5); Hematocrit 42.6 % (37-47); Hemoglobin 13.5 g/dL (12.0-15.0); Lymphocyte # 2.23 X10^3/ul (0.83-4.51); Lymphocyte % 21.8 % (19-41); Mean Corp Hgb Conc 31.7 g/dL (32-36); Mean Corpuscular Hgb 28.5 pg (27.0-32.0); Mean Corpuscular Volume 89.9 fL (81-99); Mean Platelet Vol. 10.7 fl (6.2-12.0); Monocyte# 0.81 X10^3/uL; Monocyte% 7.9 % (0-10); NRBC Flagged by Analyzer 0 % (0-5); Neutrophil # 6.92 X10^3/uL (2.7-7.7); Neutrophil % 67.6 % (47-70); Platelet Count 327 K/mm3 (150-450); RBC Distribution Width CV 13.7 % (11.6-14.6); RBC Distribution Width SD 44.7 fl (35.1-43.9); Red Blood Count 4.74 M/mm3 (4.2-5.4); White Blood Count 10.2 K/mm3 (4.4-11.0)
[2021-12-13 10:41] VITALS: BP 147/98
[2021-12-13 10:58] LABS: Internal QC Validated? YES +Cl - CLEAR BKGD; Pregnancy, Serum, hCG Quali. NEGATIVE Negative
[2021-12-13 11:11] LABS: ALB/GLOB Ratio 0.8 RATIO (0.9-2.4); AST(SGOT) 37 U/L (15-37); Alanine Aminotransfer ALT/SGPT 34 U/L (13-56); Albumin, Serum 3.4 g/dL (3.2-5.0); Alkaline Phosphatase 47 U/L (45-117); Anion Gap 7 (5-15); BUN 11 mg/dL (7-18); BUN/Creat Ratio 13.5 RATIO (10-20); CPK Total, Creatine Kinase 128 U/L (26-192); Calcium,Total 8.5 mg/dL (8.5-10.1); Chloride 109 mmol/L (98-107); Creatinine, Serum 0.81 mg/dL (0.55-1.02); EST Glomerular Filtration Rate 86 mL/min (>60); Est Glom Filt Rate - Afr Amer 104 mL/min (>60); Estimated Creatinine Clearance 80.95 ml/min; Globulin 4.2 g/dL (2.2-4.2); Glucose 130 mg/dL (74-106); Potassium 4.5 mmol/L (3.5-5.1); Protein, Total 7.6 g/dL (6.4-8.2); Sodium Level 139 mmol/L (136-145)
[2021-12-13 11:41] LABS: Bacteria 0 SEEN /hpf (None Seen); Mucous, Urine 0 SEEN /hpf (<or=2+); Squamous Epithelial Cells - UA 0 SEEN /hpf (5-10)
[2021-12-13 11:53] LABS: Color, Urine Yellow (Yellow); Glucose, Dipstick Normal (Normal); Ketone-Dipstick 5 mg/dl (Negative); Leukocyte Esterase-Dipstick 100 /ul (Negative); Nitrite-Dipstick Negative (Negative); Occult Blood-Urine 25 /ul (Negative); Protein-Dipstick Negative (Negative); Specific Gravity, Urine 1.015 (1.002-1.030); Urine Bilirubin Dipstick Negative (Negative); Urine Clarity Sl. Cloudy (Clear); Urine Urobilinogen Normal (Normal)
[2021-12-13 11:55] LABS: Red Blood Cells-Urine 0-5 SEEN /hpf (0-5); White Blood Cells 25-50 SEEN /hpf (0-5)
[2021-12-13] MEDS: Smz/Tmp Ds Tablet 1 TABLET PO (12:19)
== END 2021-12-13 12:26 | disposition home or self-care (01) ==
PROVIDERS: Emergency Provider Emergency Medicine; PCP Internal Medicine; Visit Provider Emergency Medicine
DX: N39.0 Urinary tract infection, site not specified (principal); R11.2 Nausea with vomiting, unspecified; M79.10 Myalgia, unspecified site; R06.02 Shortness of breath
CPT/HCPCS: 80053; 81001; 82550; 84703; 85025; 93005; 96360; 99283; J7030; A4216

== ENCOUNTER 2022-05-03 03:24 | Emergency (ER) | payer MEDICAID, SELFPAY ==
[2022-05-03 03:25] VITALS: BP 164/96; PULSE 97; RESP 18; TEMP 37.4; O2SAT 98; BMI 47.2
--- NOTE | 2022-05-03 03:39 | EX.ED.DYSGE1 ---
HPI History of Present Illness Chief Complaint: Hyperglycemia Detail of Chief Complaint: Elevated blood sugar tonight Informant: patient Onset/Context/Timing Onset: Today and Hours Context: Gradual Onset Timing: Continuous Current Severity: Mild Maximum Severity: Mild Narrative Narrative: 36-year-old female recently diagnosed with new onset type 2 diabetes. Was on metformin and Trulicity now is just on Trulicity. She also has a history of fibromyalgia, endometriosis and scoliosis. States tonight at work she just felt general malaise with blurry vision and felt lightheaded. Had nausea and vomiting. And took her blood sugar and it was 346. She denies any fever or dysuria. No severe headache, chest pain or abdominal pain. No dysuria or diarrhea. Prior similar symptoms: No Recent Illness/Hospitalization: No PFSH PFSH Medical History Endometriosis Fibromyalgia Scoliosis Home Medications norethindrone acetate 5 mg tablet 5 mg PO DAILY 10/07/20 [History Last Taken Unknown] dulaglutide 0.75 mg/0.5 mL subcutaneous pen injector (Trulicity) 0.75 mg subcut QWEEK 05/03/22 [History Last Taken Unknown] Allergy/AdvReac Type Severity Reaction Status Date / Time Penicillins Allergy Angioedema Verified 12/13/21 08:51 venlafaxine [From Effexor] Allergy Hives Verified 12/13/21 08:51 Social History Smoking Status: Never smoker ROS ROS ED ROS Narrative Weakness. Nausea and vomiting. Review of Systems ROS Unobtainable: Denies due to encephalopathy Constitutional Constitutional ED: Denies chills Eyes Eyes: Reports blurry vision ENT ENT ED: Denies ear pain Cardiovascular Cardiovascular: Denies chest pain Respiratory/Chest Respiratory/Chest: Denies cough or dyspnea Gastrointestinal Gastrointestinal: Reports nausea and vomiting; Denies abdominal pain, constipation, diarrhea or melena Genitourinary Genitourinary ED: Denies dysuria Musculoskeletal Musculoskeletal: Denies arthralgias Integumentary Denies abscess Neurologic Neurologic: Denies headache(s) Psychiatric Psychiatric: Denies anxiety Endocrine Endocrinology: Denies cold intolerance Hematologic/Lymphatic Hematologic/Lymphatic: Reports none Allergic/Immunologic Allergic/Immunologic ED: Denies mouth swelling or tongue swelling EXAM Physical Exam Narrative Exam Narrative: 36-year-old female no acute distress. Vital signs stable afebrile. Pulse ox 90% on room air no signs hypoxia. H EENT exam unremarkable. Moist Riis membranes. Neck nontender no JVD. No lymphadenopathy. Lungs clear to auscultation bilaterally. Heart regular rhythm. No murmur. Rate about 95. Chest wall nontender. Abdomen soft nontender. No peritoneal signs. Moving all 4 extremities. Normal motor strength both upper and lower extremities. Back nontender. Skin unremarkable. Neurologically she is awake alert with no focal motor deficits. Const Vital Signs: 05/03/22 03:25 05/03/22 03:25 Temperature 99.3 F H 99.3 F H Temperature Source Temporal Temporal Pulse Rate 97 97 Respiratory Rate 18 18 Blood Pressure 164/96 H 164/96 H Blood Pressure Mean 118 118 Pulse Ox 98 98 Oxygen Delivery Method Room Air Room Air Positive well nourished, well developed and obese; Negative for cachectic, contractures or unkempt General Appearance ED: well developed and NAD; Negative for unkempt, cachectic, contractures, cyanotic or diaphoretic Nutritional Appearance: obese; Negative for cachectic HEENT Reports moist mucous membranes; Denies dry mucous membranes Negative for trauma Mouth ED: No dry mucous membranes Mouth: No dry mucous membranes Eyes PERRL and EOMs intact bilaterally General Eye ED: Negative for pale conjunctiva or scleral icterus Neck no lymphadenopathy, supple and no JVD General: Negative for tenderness Lymph Lymphatic: Negative for other Chest Wall inspection of chest normal and palpation of chest normal Chest: Negative for other Resp normal respiratory effort and clear to auscultation bilaterally Effort and Inspection: Negative for retractions Auscultation: Negative for rales, rhonchi or wheezes Cardio regular rate, regular rhythm, S1 normal heart sound, S2 normal heart sound and no murmurs Rate: Negative for bradycardia or tachycardic GI normal to inspection, nondistended, normoactive bowel sounds, non-tender, non-distended and no masses Inspection: Negative for abdominal distention Auscultation: normoactive bowel sounds Palpation: soft; Negative for tender or guarding Back/Spine no CVA tenderness General Back: Negative for CVA tenderness Cervical Spine: Negative for cervical spine tenderness Thoracic Spine / Upper Back: Negative for thoracic spinal tenderness Lumbar Spine / Lower Back: Negative for lumbar spinal tenderness Extremity normal to inspection General Extremety ED: Negative for edema or tenderness General Extremity: Negative for edema Neuro oriented x3 and CN's II-XII intact bilaterally Sensorium / Orientation: alert; Negative for orientation impaired, lethargic or stuporous Motor Exam: strength 5/5 throughout; Negative for general weakness Psych mental status grossly normal Appearance: Negative for unkempt Attitude: No agitated Mood & Affect: Negative for depressed, anxious or tearful Skin no rashes or lesions noted and no wounds General Skin Exam: elasticity normal Lesions: No lesion noted Rashes: No rashes noted Trauma: Negative for abrasion Wounds: Negative for wounds noted MDM MDM MDM Narrative Medical decision making narrative: 36-year-old female with new onset diabetes in the last month or so. On Trulicity. Complaint of elevated blood sugar with blurry vision, nausea and vomiting. Exam benign. She will be treated with a liter normal saline. Screening labs will be obtained along with a serum acetone. Zofran for nausea. Repeat exam patient is doing well at 4:20 AM She will be discharged home. Fluids and rest. Watch her blood sugars closely and follow-up with her primary care provider. Lab Data Attestation: I reviewed the patient's lab results. Lab results narrative: CBC normal. White count 8.2. H&H of 13.2 and 41. Glucose 254 on the BGT. Serum ketones negative. Chemistries unremarkable gap of 9 normal BUN of 12 creatinine 0.9 glucose 256. Labs: Laboratory Results - last 24 hr 05/03/22 05/03/22 05/03/22 03:31 03:50 03:50 WBC 8.2 RBC 4.66 Hgb 13.2 Hct 41.1 MCV 88.2 MCH 28.3 MCHC 32.1 RDW Std Deviation 43.8 RDW Coeff of Swapna 13.5 Plt Count 342 MPV 10.4 Immature Gran % (Auto) 0.200 Neut % (Auto) 48.5 Lymph % (Auto) 40.1 [place] % (Auto) 8.6 Eos % (Auto) 2.1 Baso % (Auto) 0.5 Absolute Neuts (auto) 4.0 Absolute Lymphs (auto) 3.27 Nucleated RBC % 0 Sodium 139 Potassium 4.0 Chloride 108 H Carbon Dioxide 22.0 Anion Gap 9 BUN 12 Creatinine 0.94 Estim Creat Clear Calc 69.76 Est GFR (MDRD) Af Amer 87 Est GFR (MDRD) Non-Af 72 BUN/Creatinine Ratio 12.7 Glucose 256 H Calcium 8.7 Acetone Level POC Glucose 254 H 05/03/22 03:50 WBC RBC Hgb Hct MCV MCH MCHC RDW Std Deviation RDW Coeff of Swapna Plt Count MPV Immature Gran % (Auto) Neut % (Auto) Lymph % (Auto) [place] % (Auto) Eos % (Auto) Baso % (Auto) Absolute Neuts (auto) Absolute Lymphs (auto) Nucleated RBC % Sodium Potassium Chloride Carbon Dioxide Anion Gap BUN Creatinine Estim Creat Clear Calc Est GFR (MDRD) Af Amer Est GFR (MDRD) Non-Af BUN/Creatinine Ratio Glucose Calcium Acetone Level NEGATIVE POC Glucose Discharge Plan Triage Chief Complaint: Hyperglycemia ED Provider: Eugene Perry Dx/Rx/DC Orders Clinical Impression: Hyperglycemia due to diabetes mellitus Instructions: ED Diabetic Hyperglycemia Prescriptions: No Action norethindrone acetate 5 mg tablet 5 mg PO DAILY Trulicity 0.75 mg/0.5 mL pen injector 0.75 mg SUBCUT QWEEK Primary Care Provider: Ani Lynch BED CONTROL SPECIALIST Referrals: Doc Lozano MD [[facility]] - 3-5 Days if not improving Activity Restrictions/Additional Instructions: Plenty of fluids and rest. Watch your blood sugar closely next several days. Follow-up with your doctor if not improving. Disposition Disposition: Home, Self Care
[2022-05-03 03:51] LABS: Bedside Glucose 254 mg/dL (74-106)
[2022-05-03] MEDS: 0.9% Normal Saline 1,000 ML 1000 ML IV (03:54)
[2022-05-03] MEDS: Ondansetron 4 MG/2 ML Vial IV (03:55)
[2022-05-03 03:59] LABS: Absolute Lymphocyte Count 3.27 X10^3/uL (0.83-4.51); Basophil# 0.04 X10^3/uL; Basophil% 0.5 % (0-1); Eosinophil# 0.17 X10^3/uL; Eosinophils% 2.1 % (0-5); Hematocrit 41.1 % (37-47); Hemoglobin 13.2 g/dL (12.0-15.0); Lymphocyte # 3.27 X10^3/ul (0.83-4.51); Lymphocyte % 40.1 % (19-41); Mean Corp Hgb Conc 32.1 g/dL (32-36); Mean Corpuscular Hgb 28.3 pg (27.0-32.0); Mean Corpuscular Volume 88.2 fL (81-99); Mean Platelet Vol. 10.4 fl (6.2-12.0); Monocyte% 8.6 % (0-10); NRBC Flagged by Analyzer 0 % (0-5); Neutrophil # 3.95 X10^3/uL (2.7-7.7); Neutrophil % 48.5 % (47-70); Platelet Count 342 K/mm3 (150-450); RBC Distribution Width CV 13.5 % (11.6-14.6); RBC Distribution Width SD 43.8 fl (35.1-43.9); Red Blood Count 4.66 M/mm3 (4.2-5.4); White Blood Count 8.2 K/mm3 (4.4-11.0)
[2022-05-03 04:20] LABS: Anion Gap 9 (5-15); BUN 12 mg/dL (7-18); BUN/Creat Ratio 12.7 RATIO (10-20); Calcium,Total 8.7 mg/dL (8.5-10.1); Chloride 108 mmol/L (98-107); Creatinine, Serum 0.94 mg/dL (0.55-1.02); EST Glomerular Filtration Rate 72 mL/min (>60); Est Glom Filt Rate - Afr Amer 87 mL/min (>60); Estimated Creatinine Clearance 69.76 ml/min; Glucose 256 mg/dL (74-106); Sodium Level 139 mmol/L (136-145)
== END 2022-05-03 04:45 | disposition home or self-care (01) ==
LOC: ED 04:09
PROVIDERS: Emergency Provider Emergency Medicine; PCP Nurse Practitioner; Visit Provider Emergency Medicine
DX: E11.65 Type 2 diabetes mellitus with hyperglycemia (principal); M79.7 Fibromyalgia; M41.9 Scoliosis, unspecified; Z79.899 Other long term (current) drug therapy; Z79.84 Long term (current) use of oral hypoglycemic drugs
CPT/HCPCS: 80048; 82009; 82962; 85025; 96361; 96374; 99283; J7030; A4216; J2405

== ENCOUNTER 2022-08-13 15:04 | Emergency (ER) | payer MEDICAID, SELFPAY ==
[2022-08-13 15:05] VITALS: BP 148/92; PULSE 109; RESP 18; TEMP 36.1; O2SAT 96; BMI 45.6
--- NOTE | 2022-08-13 15:31 | RAD_ITS ---
INDICATION: diff swallowing EXAMINATION/TECHNIQUE: X-RAY - XR Neck Soft Tissue COMPARISON: None. FINDINGS: SOFT TISSUES: Unremarkable. No radiopaque foreign body. EPIGLOTTIS: No pathologic thickening or enlargement. PROXIMAL AIRWAY: There is over aeration of the hypopharynx. RAD/Neck for Soft Tissue IMPRESSION: [Overaeration of hypopharynx. The epiglottis and aryepiglottic folds appear within normal limits. Electronically Signed: oRcky Hunt MD, SHILPA at 16:03 EST ,
--- NOTE | 2022-08-13 15:32 | EKG12_ITS ---
Test Reason : Blood Pressure : / mmHG Vent. Rate : 102 BPM Atrial Rate : 102 BPM P-R Int : 148 ms QRS Dur : 086 ms QT Int : 330 ms P-R-T Axes : 041 038 066 degrees QTc Int : 430 ms Sinus tachycardia Otherwise normal ECG Confirmed by ANGELO ROGER, EL ([id number]), acquisitions editor ARGENTINA LLANES ([id number]) on 08/16/2022 9:26:17 AM Referred By: Confirmed By:EL STEPHENS MD
--- NOTE | 2022-08-13 15:38 | EDS_ITS ---
HPI History of Present Illness Chief Complaint: General Illness Informant: patient Onset/Context/Timing Onset: Yesterday Narrative Narrative: Patient presents with cold symptoms that started yesterday. She complains of a migraine, left ear pain, chest heaviness. She feels as if something is caught in her throat making it difficult to swallow. She states has been able to eat with small bites. She does not have significant throat pain. [facility] Medical History Endometriosis Fibromyalgia Scoliosis Home Medications norethindrone acetate 5 mg tablet 10 mg PO DAILY 10/07/20 [History Last Taken Unknown] cyclobenzaprine 5 mg tablet 5 mg PO TID 08/13/22 [History Last Taken Unknown] Allergy/AdvReac Type Severity Reaction Status Date / Time Penicillins Allergy Angioedema Verified 08/13/22 15:05 venlafaxine [From Effexor] Allergy Hives Verified 08/13/22 15:05 Social History Smoking Status: Never smoker ROS ROS ED Constitutional Constitutional ED: Reports fever(s), subjective and sweats Eyes Eyes: Denies change in vision or discharge from eye(s) ENT ENT ED: Reports ear pain left and other Details: Foreign body sensation in throat ; Denies discharge from eye(s), rhinorrhea or sore throat Cardiovascular Cardiovascular: Reports chest pain; Denies palpitations Respiratory/Chest Respiratory/Chest: Denies cough or dyspnea Gastrointestinal Gastrointestinal: Denies abdominal pain, diarrhea, nausea or vomiting Genitourinary Genitourinary ED: Denies dysuria Musculoskeletal Musculoskeletal: Denies back pain or extremity pain Integumentary Denies Abrasions or rash Neurologic Neurologic: Reports headache(s); Denies weakness Allergic/Immunologic Allergic/Immunologic ED: Denies lip swelling or urticaria EXAM Physical Exam Narrative Exam Narrative: Patient tolerating secretions well and speaks with a strong voice. Const Vital Signs: 08/13/22 15:05 08/13/22 15:05 Temperature 97.0 F L Temperature Source Temporal Pulse Rate 109 H Respiratory Rate 18 Respiratory Effort Normal Non-Labored Respiratory Pattern Normal Blood Pressure 148/92 H Blood Pressure Mean 110 Pulse Ox 96 Oxygen Delivery Method Room Air Positive well nourished and well developed General Appearance ED: well developed HEENT Reports normocephalic and head/scalp atraumatic HEENT Narrative: Dense wax noted in both ear canals. Eyes PERRL and EOMs intact bilaterally Neck supple Chest Wall inspection of chest normal and palpation of chest normal Resp normal respiratory effort and clear to auscultation bilaterally Cardio regular rate and regular rhythm GI normal to inspection, nondistended, normoactive bowel sounds Palpation: soft Back/Spine no CVA tenderness Extremity normal to inspection Neuro oriented x3 and no sensory deficits noted Sensorium / Orientation: alert Motor Exam: strength 5/5 throughout Psych mental status grossly normal Skin no rashes or lesions noted MDM MDM MDM Narrative Medical decision making narrative: Patient is given Naprosyn and Zofran for her headache. Debrox is ordered along with irrigation of the bilateral ears given her ear pain and dense earwax noted. Swab for COVID, influenza, strep obtained. Chest x-ray ordered as well as soft tissue neck x-ray given her chest heaviness and foreign body sensation in her throat. EKG obtained for her chest pressure. Radiography Diagnostic Testing: Clinical Impression(s) from Imaging Studies Soft Tissue Neck X-Ray 08/13/22 15:31 IMPRESSION: [Overaeration of hypopharynx. The epiglottis and aryepiglottic folds appear within normal limits. Electronically Signed: Rocky Hunt MD, JD at 16:03 EST Reading Location ID and State: [facility] / [place] Tel , Service support , Chest X-Ray 08/13/22 15:45 IMPRESSION: No radiographic evidence of acute cardiopulmonary disease. Electronically Signed: Rocky Hunt MD, JD at 16:02 EST , EKG Initial EKG: Attestation: I personally reviewed and interpreted this EKG as follows: Interpretation: Sinus Tachycardia (Sinus tach at 102 with no acute ischemia.) Treatment and Re-Evaluation Narrative: Swabs for COVID, influenza, and strep are negative.2 view chest x-ray per my interpretation reveals no focal infiltrate or acute abnormality. Soft tissue neck x-ray per my interpretation reveals widely patent airway. Radiology interpretation is reviewed on both studies.Nursing staff was able to remove some cerumen with the ear irrigation. Patient will continue supportive care. Discharge Plan Triage Chief Complaint: General Illness ED Provider: Heavenly Berger Dx/Rx/DC Orders Clinical Impression: Viral URI Instructions: ED URI, Viral, No Abx (Adult) Prescriptions: No Action norethindrone acetate 5 mg tablet 10 mg PO DAILY cyclobenzaprine 5 mg tablet 5 mg PO TID Label Comments: TAKE 1 TABLET POP THREE TIMES DAILY NEEDED FOR MUSCLE SPASMS Stand Alone Forms: ED Work / School Excuse Primary Care Provider: Ani Lynch CHANNEL DEVELOPMENT DIRECTOR Referrals: Ani Lynch CHANNEL DEVELOPMENT DIRECTOR, CHANNEL DEVELOPMENT DIRECTOR-C [Primary Care Provider] - 1 Week if not improving Disposition Disposition: Home, Self Care
--- NOTE | 2022-08-13 15:45 | RAD_ITS ---
INDICATION: pain EXAMINATION/TECHNIQUE: X-RAY - XR Chest 2 Views COMPARISON: 01/12/2020 FINDINGS: LINES/DEVICES: None. LUNGS: No consolidation, edema or effusion. No pneumothorax. MEDIASTINUM AND CARDIOVASCULAR STRUCTURES: Cardiac silhouette not enlarged. Central airways and mediastinal contour are unremarkable. BONES AND SOFT TISSUES: Unremarkable. Stable exam. RAD/Chest PA and Lateral IMPRESSION: No radiographic evidence of acute cardiopulmonary disease. Electronically Signed: Rocky Hunt MD, SHILPA at 16:02 EST ,
[2022-08-13] MEDS: Ondansetron ODT 4 MG Tablet PO (16:10)
[2022-08-13] MEDS: Naproxen 500 MG Tablet PO (16:10)
[2022-08-13] MEDS: Carbamide Peroxide 15 ML Bottle 5 DRP OTIC (16:10)
[2022-08-13 17:09] VITALS: PULSE 84; RESP 15; O2SAT 97
== END 2022-08-13 17:10 | disposition home or self-care (01) ==
PROVIDERS: Emergency Provider Emergency Medicine; PCP Nurse Practitioner; Visit Provider Emergency Medicine
DX: J06.9 Acute upper respiratory infection, unspecified (principal); R51.9 Headache, unspecified; H92.03 Otalgia, bilateral; Z20.822 Contact with and (suspected) exposure to COVID-19
CPT/HCPCS: 70360; 71046; 87428; 87880; 93005; 99284; A4216